=== PATIENT | female | born 1980 | race African-American/Black ===

== ENCOUNTER 2017-03-29 18:12 | Emergency (ER) | payer BC, OTHER ==
[~2017-03-29] VITALS: Ht 167.6 cm; Wt 99.8 kg
[~2017-03-29 18:12] MED LIST: AMOXICILLIN 50500 M1 PO; CITRATE OF MAG296 ML PO; COLACE100 MG PO; IBUPROFEN 600600 M1 PO; KEFLEX500 MG PO; NOHOMEMEDICATIONS; NORCO 5-325 TA1 EACH PO; ONDANSETRON HCL4 M2 PO; PHENERGAN 25 MG25 M1 PO; PROTONIX40 M2 PO; ZOFRAN 4 MG ORAL4 M1 DIS
[2017-03-29 19:14] LABS: ABSOLUTE NEUTROPHILS 5.2 thou/uL (1.4-8.2); BASOPHILS 1.2 % (0.0-2.0); HEMATOCRIT 38.3 % (37.0-47.0); HEMOGLOBIN 13.3 gm/dL (12.0-15.0); LYMPHOCYTES 37.3 % (24.0-44.0); MCHC 34.6 g/dL (28.0-37.0); MCV 83.8 fL (80.0-100.0); MONOCYTES 5.4 % (1.0-8.0); PLATELET COUNT 301 thou/uL (150-400); POLYS 55.1 % (36.0-66.0); RBC 4.58 mil/uL (4.20-5.00); RDW 13.3 % (10.5-14.5); WBC 9.4 thou/uL (4.0-11.0)
[2017-03-29 19:16] LABS: MANUAL DIFF NO
[2017-03-29 19:25] LABS: CALCIUM 9.7 mg/dL (8.5-10.1); CREATININE 0.8 mg/dL (0.6-1.0); POTASSIUM 3.6 mmol/L (3.5-5.1)
[2017-03-29 19:30] LABS: ALBUMIN 3.7 g/dL (3.4-5.0); TOTAL BILIRUBIN 0.4 mg/dL (<0.1-1.0); TOTAL PROTEIN 7.3 g/dL (6.4-8.2)
[2017-03-29 20:13] LABS: URINE BILIRUBIN NEGATIVE (Negative); URINE BLOOD NEGATIVE (Negative); URINE COLOR YELLOW; URINE GLUCOSE-RANDOM* NEGATIVE (Negative); URINE KETONES 1+ (Negative); URINE NITRITE NEGATIVE (Negative); URINE PROTEIN (DIPSTICK) NEGATIVE (Negative); URINE UROBILINOGEN 0.2 E.U./dl (0.2-1.0)
[2017-03-29] MEDS ORDERED: PHENERGAN 25 MG25 M1 PO (21:15)
[2017-03-29 21:27] VITALS: BP 109/59
[2017-04-01 14:11] LABS: CHLAMYDIA TRACHOMATIS-PCR Negative (Negative); NEISSERIA GONORRHEA-PCR Negative (Negative)
== END 2017-03-29 21:27 | disposition home or self-care (01) ==
LOC: ER 18:12
PROVIDERS: Nurse Practitioner Family
DX: O34.11 Maternal care for benign tumor of corpus uteri, first trimester (principal); O21.9 Vomiting of pregnancy, unspecified; F10.99 Alcohol use, unspecified with unspecified alcohol-induced disorder; F43.10 Post-traumatic stress disorder, unspecified; Z3A.08 8 weeks gestation of pregnancy

== ENCOUNTER 2017-04-24 00:30 | Emergency (ER) | payer BC, OTHER ==
[~2017-04-24] VITALS: Ht 170.2 cm; Wt 97.5 kg
[2017-04-24] MEDS ORDERED: CIPRO500 MG PO (00:50)
[2017-04-24] MEDS ORDERED: ZOFRAN ODT4 MG DISSOLVE (00:51)
[2017-04-24] MEDS ORDERED: HYDROCODONE-AP1 EAC6 PO (00:51)
[2017-04-24] MEDS ORDERED: KEFLEX500 MG PO (01:09)
[2017-04-24] MEDS ORDERED: DIFLUCAN150 M1 PO (01:09)
[2017-04-24 01:18] VITALS: BP 124/76
== END 2017-04-24 01:25 | disposition home or self-care (01) ==
LOC: ER 00:30
DX: T78.49XA Other allergy, initial encounter (principal); Y92.89 Other specified places as the place of occurrence of the external cause; F90.9 Attention-deficit hyperactivity disorder, unspecified type